=== PATIENT | female | born 1990 | race Caucasian/White ===

== ENCOUNTER 2020-07-21 18:23 | Emergency (ER) | payer MEDICAID ==
[~2020-07-21] VITALS: Ht 149.9 cm; Wt 80.7 kg
[2020-07-21 18:32] VITALS: Ht 149.9 cm; Wt 80.7 kg
[2020-07-21] MEDS ORDERED: ALLERGY RELIE15.8 ML (18:49)
[2020-07-21] MEDS ORDERED: NAPROXEN500 MG PO (18:49)
[2020-07-21] MEDS ORDERED: AUGMENTIN 875-1 EACH PO (18:49)
[2020-07-21 19:13] VITALS: BP 131/76
== END 2020-07-21 19:13 | disposition home or self-care (01) ==
LOC: ED 18:23
DX: H66.92 Otitis media, unspecified, left ear (principal); R51.9 Headache, unspecified; Z90.49 Acquired absence of other specified parts of digestive tract
CPT/HCPCS: J1885